=== PATIENT | female | born 1970 | race Two or more races ===

== ENCOUNTER 2017-05-02 15:01 | Emergency (ER) | payer OTHER ==
[~2017-05-02] VITALS: Ht 162.6 cm; Wt 73.0 kg
[2017-05-02 15:16] VITALS: Ht 162.6 cm; Wt 73.0 kg
[2017-05-02 18:55] VITALS: BP 148/86
== END 2017-05-02 18:55 | disposition home or self-care (01) ==
LOC: ED 15:01
DX: S00.83XA Contusion of other part of head, initial encounter (principal); S00.31XA Abrasion of nose, initial encounter; Y04.2XXA Assault by strike against or bumped into by another person, initial encounter; Y93.89 Activity, other specified; Y99.8 Other external cause status; Y92.89 Other specified places as the place of occurrence of the external cause
CPT/HCPCS: 90715